=== PATIENT | female | born 1965 | race Caucasian/White ===

== ENCOUNTER 2023-07-03 20:37 | Emergency (ER) | payer OTHER, SELFPAY ==
[2023-07-03] VITALS (15 sets, daily range): BP systolic 132–150; BP diastolic 76–89; PULSE 68–81; RESP 9–21; TEMP 37.1; O2SAT 98–100; BMI 19.8
--- NOTE | 2023-07-03 20:54 | CT_ITS ---
The [address] [address] Patient Name: CECILIA PEÑA MRN: [id number] date: 1965 Sex: F Assigned Patient Location: ER Current Patient Location: ER Accession/Order Number: [id number] Exam Date: 07/03/2023 21:15 Report Date: 07/03/2023 21:48 At the request of: MIGUEL HEATH Procedure: CT head/brain wo con EXAM: CT head/brain wo con HISTORY: head trauma COMPARISON: None. TECHNIQUE: Axial CT scans through the head were obtained without IV contrast administration. Dose reduction techniques were achieved by using: automated exposure control and/or adjustment of mA and /or kV according to patient size and/or use of iterative reconstruction technique. FINDINGS: There is no acute intracranial hemorrhage or abnormal extra-axial fluid collection. No mass effect or midline shift is seen. There is no evidence of large acute territorial infarction. There is no hydrocephalus. To the limit of CT, the posterior fossa appears unremarkable. The calvaria and extra cranial soft tissues are unremarkable. The visualized orbits show no abnormal mass. Partial opacification of right sphenoid sinus is seen with fluid attenuation and foamy secretions. There are mucosal thickening in bilateral sphenoid sinus and ethmoid air cells. Mastoid air cells are clear. CT/CT head/brain wo con IMPRESSION: No acute intracranial process. Partial opacification of right sphenoid sinus with fluid attenuation and foamy secretions, suspicious for right sphenoid sinusitis. Electronically authenticated by: ABDELRAHMAN DUNNU Date: 07/03/2023 21:48
--- NOTE | 2023-07-03 20:54 | ECG_ITS ---
The [facility] Test Date: 2023-07-03 Pat Name: CECILIA PEÑA Department: Room: - Gender: Female Technical Services Specialist: : 1965 Requested By: [id number] Order Number: [id number] Reading MD: ROSAMARIA BOSS Measurements Intervals [place] Rate: 66 P: 55 [place]: 136 QRS: 83 QRSD: 86 T: 75 QT: 398 QTc: 412 Interpretive Statements 1100 Sinus rhythm 9110 normal ECG No previous ECG available for comparison Electronically Signed On 07-04-2023 7:21:43 EDT by ROSAMARIA BOSS
--- NOTE | 2023-07-03 20:57 | CT_ITS ---
[address] [address] Patient Name: CECILIA PEÑA MRN: [id number] date: 1965 Sex: F Assigned Patient Location: ER Current Patient Location: ER Accession/Order Number: [id number] Exam Date: 07/03/2023 21:15 Report Date: 07/03/2023 21:53 At the request of: MIGUEL HEATH Procedure: CT abdomen pelvis wo con EXAM: CT abdomen pelvis wo con HISTORY: abd pain and colitits COMPARISON: None. TECHNIQUE: Axial CT imaging was performed through the abdomen and pelvis without intravenous contrast. Multiplanar reformats were performed. Dose reduction techniques were achieved by using automated exposure control and/or adjustment of mA and/or kV according to patient size and/or use of iterative reconstruction technique. FINDINGS: Lung bases: Lung bases are clear. No pleural effusion. GI upper: Unremarkable. Liver: Normal size and contour. Gallbladder: No significant abnormality. No cholelithiasis. Biliary system: No intra or extrahepatic biliary ductal dilatation. Pancreas: Unremarkable. Spleen: Normal size. Adrenal glands: Normal adrenal glands. Kidneys/ureters: Normal contours. No hydronephrosis or visible mass. 2.3 cm right renal cyst. Maeve nephrolithiasis. Vessels: No aneurysm. Retroperitoneum: No lymphadenopathy. Small bowel: No wall thickening or dilatation. Colon: No wall thickening or dilatation. Appendix: No findings of appendicitis. Peritoneal cavity: No free fluid or pneumoperitoneum. Lower : Prior hysterectomy.. Bones:L5-S1 spondylosis with mild degenerative anterolisthesis of L5 upon S1. No acute bony abnormality. Soft tissues: No acute finding. Additional findings: None. CT/CT abdomen pelvis wo con IMPRESSION: Prior hysterectomy. L5-S1 spondylosis. No acute intra-abdominal or pelvic process is otherwise identified. Electronically authenticated by: Carmela URENA Date: 07/03/2023 21:53
[2023-07-03] MEDS: 0.9 % SODIUM CHLORIDE 1,000 ML 1000 ML IV (21:08)
[2023-07-03 21:23] LABS: Basophils Absolute Auto 0.1 10^3/uL (0.0-0.1); Basophils Percent Auto 0.6 % (0.2-2.0); Eosinophils Absolute Auto 0.1 10^3/uL (0.0-0.7); Eosinophils Percent Auto 0.5 % (0.9-7.0); Hematocrit 40.3 % (36.0-48.0); Hemoglobin 13.6 g/dL (12.0-16.0); Immature Granulocytes Abs Auto 0.02 10^3/uL (0.00-0.03); Immature Granulocytes Pct Auto 0.2 % (0.0-0.5); Lymphocytes Absolute Auto 1.9 10^3/uL (1.2-3.8); Lymphocytes Percent Auto 17.8 % (20.5-60.0); Mean Corpuscular HGB Conc 33.7 g/dL (29.9-35.2); Mean Corpuscular Hemoglobin 30.1 pg (26.7-34.0); Mean Corpuscular Volume 89.2 fL (81.0-99.0); Mean Platelet Volume 10.4 fL (9.5-13.5); Monocytes Absolute Auto 0.4 10^3/uL (0.3-0.8); Monocytes Percent Auto 3.4 % (1.7-12.0); Neutrophils Absolute Auto 8.1 10^3/uL (1.4-6.5); Neutrophils Percent Auto 77.5 % (43.0-75.0); Platelet Count 278 10^3/uL (150-450); Red Blood Count 4.52 10^6/uL (4.20-5.40); Red Cell Distribution Width 13.2 % (11.0-15.0); White Blood Count 10.5 10^3/uL (4.0-11.0)
[2023-07-03 21:41] LABS: INR 0.94
[2023-07-03 21:43] LABS: Alanine Aminotransferase 9 U/L (14-59); Albumin Globulin Ratio 1.4; Albumin Level 4.4 g/dL (3.4-5.0); Alkaline Phosphatase 80 U/L (46-116); Anion Gap 12.9; Aspartate Amino Transferase 19 U/L (15-37); BUN Creatinine Ratio 15.7; Bilirubin Total 0.7 mg/dL (0.2-1.0); Calcium 9.4 mg/dL (8.5-10.1); Carbon Dioxide 27.6 mmol/L (21.0-32.0); Chloride 102 mmol/L (98-107); Estimated GFR (African America >60 (>=60); Estimated GFR (Non-African Ame >60 (>=60); Globulin 3.1 g/dL; Glucose 114 mg/dL (74-106); Potassium 3.5 mmol/L (3.5-5.1); Sodium 139 mmol/L (136-145); Total Protein 7.5 g/dL (6.4-8.2); Troponin I High Sensitivity <4.0 pg/mL (4.0-51.3)
[2023-07-03] MEDS: ONDANSETRON PF 4 MG/2 ML VIAL IV (22:06)
[2023-07-03] MEDS: FAMOTIDINE/PF 20 MG/2 ML VIAL IV (22:07)
--- NOTE | 2023-07-03 22:29 | ED.NAVMDI1 ---
HPI - Nausea/Vomiting/Diarrhea General Chief complaint: Nausea/Vomiting/Diarrhea Stated complaint: VOMITING Time Seen by Provider: 07/03/23 20:53 Source: patient and family Mode of arrival: walk-in Limitations: no limitations History of Present Illness HPI Narrative: The patient is coming to the ER with 1 day history of lower abdominal pain associated with nausea and vomiting and diarrhea that started after that the patient mentioned that all started yesterday but at night almost 2 AM that she was having some lower abdominal pain when she was standing up when she had a lot of pain and then she remembered falling and passing out hitting the right side of her head. During the day the patient has some episode of nausea and vomiting she did not have an appetite to eat she also has a right-sided headache she also mentioned that she usually gets headache with migraine and she also have a history of chronic sinus problems The patient denies any fever chills coughing or any other complaints she did have a history of hysterectomy The patient also had a history of colitis and she is due to get her colonoscopy right now Related Data Previous Rx's Medication Instructions Recorded dicyclomine 10 mg capsule 10 mg PO QID PRN abdominal pain #7 07/03/23 caps ondansetron HCl 4 mg tablet 4 mg PO TID PRN nausea and 07/03/23 vomiting 1 day #3 tabs Allergies Allergy/AdvReac Type Severity Reaction Status Date / Time Penicillins Allergy Intermediate Verified 07/03/23 20:51 Review of Systems ROS Status of ROS 10 or more systems reviewed and unremarkable except as noted in history and below Exam Narrative Exam Narrative: Nurses notes and vital signs reviewed and patient is not hypoxic. General: Well-appearing and in no apparent distress. Skin: Warm, dry, no pallor noted. No rash. Head: Normocephalic, atraumatic. Neck: Supple, non-tender. Eye: Pupils are equal, round and EOMI. No scleral icterus. Ears, Nose, Mouth, and Throat: TM are clear, no nasal mucosal hypertrophy. Oral mucosa is moist, no posterior oropharynx erythema, uvula is mid-line Cardiovascular: Regular Rate and Rhythm without murmur, gallop or rub. Respiratory: No accessory muscle use or respiratory distress. Lungs are clear to auscultation, no wheezing, rales or rhonchi Chest Wall: no tenderness Back: No midline thoracic or lumbar vertebral tenderness. No CVA tenderness Musculoskeletal: normal ROM, no calf or popliteal tenderness, no lower extremity edema/swelling GI: Abdomen is soft, non-distended. Normal bowel sounds. No masses appreciated. No tenderness to palpation. No rebound, guarding, or rigidity noted. Neurological: A&O x4. No cranial nerve dysfunction observed. No truncal ataxia. Moves all extremities. Sensation intact. Psychiatric: Cooperative and interactive. Normal mood and affect. Constitutional Vital Signs, click to edit/add: Last Vital Signs Temp 98.8 F 07/03/23 20:46 Pulse 74 07/03/23 22:30 Resp 20 07/03/23 22:30 BP 142/89 H 07/03/23 22:30 Pulse Ox 100 07/03/23 22:30 Course Vital Signs Vital signs: Vital Signs Temperature 98.8 F 07/03/23 20:46 Pulse Rate 68 07/03/23 20:46 Respiratory Rate 20 07/03/23 20:46 Blood Pressure 138/84 07/03/23 20:46 Pulse Oximetry 98 07/03/23 20:46 Temperature 98.8 F 07/03/23 20:46 Pulse Rate 74 07/03/23 22:30 Respiratory Rate 20 07/03/23 22:30 Blood Pressure 142/89 H 07/03/23 22:30 Pulse Oximetry 100 07/03/23 22:30 MDM - Nausea/Vomiting/Diarrhea MDM Narrative Medical decision making narrative: The patient EKG in the ER was showing sinus rhythm with a heart rate of [address] elevation or depression The patient CBC and chemistry showed no acute significant pathology her CAT scan of the abdomen did not show any acute pathology as well regarding her colon CT of the head did not show any acute intracranial pathology The patient abdominal examination was benign initially and the rest of her evaluation did not show any acute significant pathology except for possible gastroenteritis The patient was given 1 L of fluids as well as Zofran and Pepcid in the ER and also discharged home with liquid diet for the next few days in addition to Zofran and Bentyl as supportive care for possible gastroenteritis The patient is to follow up with primary care physician in next 2-3 days or to return to the emergency department should any of the signs or symptoms worsen or new symptoms develop. The patient agrees with the following Diagnosis and Treatment plan and the patient will be discharged home. Lab Data Labs: Lab Results 07/03/23 Range/Units 21:00 WBC 10.5 (4.0-11.0) 10^3/uL RBC 4.52 (4.20-5.40) 10^6/uL Hgb 13.6 (12.0-16.0) g/dL Hct 40.3 (36.0-48.0) % MCV 89.2 (81.0-99.0) fL MCH 30.1 (26.7-34.0) pg MCHC 33.7 (29.9-35.2) g/dL RDW 13.2 (11.0-15.0) % Plt Count 278 (150-450) 10^3/uL MPV 10.4 (9.5-13.5) fL Neut % (Auto) 77.5 H (43.0-75.0) % Lymph % (Auto) 17.8 L (20.5-60.0) % [place] % (Auto) 3.4 (1.7-12.0) % Eos % (Auto) 0.5 L (0.9-7.0) % Baso % (Auto) 0.6 (0.2-2.0) % Neut # (Auto) 8.1 H (1.4-6.5) 10^3/uL Lymph # (Auto) 1.9 (1.2-3.8) 10^3/uL [place] # (Auto) 0.4 (0.3-0.8) 10^3/uL Eos # (Auto) 0.1 (0.0-0.7) 10^3/uL Baso # (Auto) 0.1 (0.0-0.1) 10^3/uL Abs Immat Gran (auto) 0.02 (0.00-0.03) 10^3/uL Imm/Tot Granulo (auto) 0.2 (0.0-0.5) % PT 10.0 (9.0-11.6) sec INR 0.94 Sodium 139 (136-145) mmol/L Potassium 3.5 (3.5-5.1) mmol/L Chloride 102 (98-107) mmol/L Carbon Dioxide 27.6 (21.0-32.0) mmol/L Anion Gap 12.9 BUN 11.0 (7.0-18.0) mg/dL Creatinine 0.70 (0.55-1.02) mg/dL Est GFR ( Amer) >60 (>=60) Est GFR (Non-Af Amer) >60 (>=60) BUN/Creatinine Ratio 15.7 Glucose 114 H (74-106) mg/dL Calcium 9.4 (8.5-10.1) mg/dL Total Bilirubin 0.7 (0.2-1.0) mg/dL AST 19 (15-37) U/L ALT 9 L (14-59) U/L Alkaline Phosphatase 80 (46-116) U/L Troponin I High Sens <4.0 L (4.0-51.3) pg/mL Total Protein 7.5 (6.4-8.2) g/dL Albumin 4.4 (3.4-5.0) g/dL Globulin 3.1 g/dL Albumin/Globulin Ratio 1.4 Lipase 100.0 (73.0-393.0) U/L Discharge Plan Discharge Chief Complaint: Nausea/Vomiting/Diarrhea Clinical Impression: Gastroenteritis, Headache due to trauma Patient Disposition: Home, Self-Care Time of Disposition Decision: 22:29 Prescriptions / Home Meds: New ondansetron HCl 4 mg tablet 4 mg PO TID PRN (Reason: nausea and vomiting) 1 Days Qty: 3 0RF dicyclomine 10 mg capsule 10 mg PO QID PRN (Reason: abdominal pain) Qty: 7 0RF Instructions: Concussion (ED), Gastroenteritis (ED) Stand Alone Forms: Portal Instructions Referrals: Physician,Non-Staff, MD [Primary Care Provider] - 1 week Discharge Date/Time: 07/03/23 22:52
== END 2023-07-03 22:52 | disposition home or self-care (01) ==
PROVIDERS: Emergency Provider Emergency Medicine
DX: K52.9 Noninfective gastroenteritis and colitis, unspecified (principal); R51.9 Headache, unspecified; Z91.81 History of falling; Z90.710 Acquired absence of both cervix and uterus
CPT/HCPCS: 36415; 70450; 74176; 80053; 80307; 83690; 84484; 85025; 85610; 93005; 96374; 96375; 99285

== ENCOUNTER 2024-02-29 18:40 | Emergency (ER) | payer OTHER, SELFPAY ==
[2024-02-29 18:43] VITALS: BP 139/77; PULSE 84; TEMP 37; O2SAT 100; BMI 19.8
--- NOTE | 2024-02-29 19:14 | XR_ITS ---
The [address] [address] Patient Name: CECILIA PEÑA MRN: [id number] date: 1965 Sex: F Assigned Patient Location: ER Current Patient Location: ER Accession/Order Number: [id number] Exam Date: 02/29/2024 19:35 Report Date: 02/29/2024 20:00 At the request of: MADISON MARKER Procedure: XR shoulder RT min 2V Exam: Radiographs: XR shoulder RT min 2V, XR chest 2V Reason for exam: Right shoulder pain Comparison: None XR/XR shoulder RT min 2V IMPRESSION: Hyperinflation both lungs. Pulmonary venous hypertension. Remainder the chest is unremarkable. Mild right glenohumeral and AC joint degenerative change. Right shoulder radiographs are otherwise unremarkable. Electronically authenticated by: LAKEISHA MERRITT Date: 02/29/2024 20:00
--- NOTE | 2024-02-29 19:14 | XR_ITS ---
The [address] [address] Patient Name: CECILIA PEÑA MRN: [id number] date: 1965 Sex: F Assigned Patient Location: ER Current Patient Location: ER Accession/Order Number: [id number] Exam Date: 02/29/2024 19:35 Report Date: 02/29/2024 20:00 At the request of: MADISON MARKER Procedure: XR chest 2V Exam: Radiographs: XR shoulder RT min 2V, XR chest 2V Reason for exam: Right shoulder pain Comparison: None XR/XR chest 2V IMPRESSION: Hyperinflation both lungs. Pulmonary venous hypertension. Remainder the chest is unremarkable. Mild right glenohumeral and AC joint degenerative change. Right shoulder radiographs are otherwise unremarkable. Electronically authenticated by: LAKEISHA MERRITT Date: 02/29/2024 20:00
--- NOTE | 2024-02-29 19:14 | ED.UPPEXIN1 ---
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 She denies any gaetano injury but thinks she may have twisted when putting pieces in the back of her car.. She states she has been having increasing pain which is worse at night. She occasionally takes ibuprofen. She has not family physician for this pain. She states the pain radiates down into her humerus and into her lower scapular area. She denies any chest pain except with movement of her right shoulder at that time she has some pain in her right anterior chest wall. She states that time her shoulder pops. She denies any weakness or numbness. She has no abdominal pain. She has no lower 70 pain or swelling. Related Data Previous Rx's ?Medication ?Instructions ?Recorded dicyclomine 10 mg capsule 10 mg PO QID PRN abdominal pain #7 07/03/23 caps ondansetron HCl 4 mg tablet 4 mg PO TID PRN nausea and 07/03/23 vomiting 1 day #3 tabs Allergies Allergy/AdvReac Type Severity Reaction Status Date / Time Penicillins Allergy Intermediate Verified 07/03/23 20:51 prednisone AdvReac Severe Verified 02/29/24 18:43 Opioid HPI Opioid Management Most Recent Pain and Opioid Data: Last Pain Scale 9 02/29/24 19:39 Last ED Pain Assessment 02/29/24 19:00 Last MAR Pain Assessment 02/29/24 19:39 Review of Systems ROS Status of ROS 10 or more systems reviewed and unremarkable except as noted in history and below Exam Narrative Exam Narrative: Nurses note and vital signs reviewed and patient is not hypoxic. General: Thin female resting comfortably on the cart, no respiratory distress, she moves easily about the cart Skin: Warm, dry, no pallor noted. There is no rash noted. Head: Normocephalic, atraumatic Eye: Normal conjunctiva, no drainage, EOMI. PERRL Ears, Nose, Mouth, and Throat: oral mucosa is moist. Nares patent Respiratory: Patient is in no distress, no accessory muscle use, lungs are clear to auscultation, no wheezing, rales or rhonchi, Mild tenderness to the right anterior chest wall Back: non-tender, no CVA tenderness bilaterally to percussion. GI: Normal bowel sounds, no tenderness to palpation, no masses appreciated. No rebound, guarding, or rigidity noted. Musculoskeletal: Tenderness without bony deformity or notable abnormality to the right anterior and posterior shoulder girdle and scapula, there is no midline vertebral cervical or thoracic tenderness. Range of motion is intact with discomfort appreciated with adduction of the right shoulder. Refrigeration Mechanic Helper strength is intact. Radial and brachial pulses are brisk and equal bilaterally. There is no lower extremity tenderness or swelling noted Neurological: A&O x4, normal speech Psychiatric: Cooperative Constitutional Vital Signs, click to edit/add: Last Vital Signs Temp 98.6 F 02/29/24 18:43 Pulse 84 02/29/24 18:43 Resp 16 02/29/24 18:43 BP 139/77 02/29/24 18:43 Pulse Ox 100 02/29/24 18:43 O2 Del Method Room Air 02/29/24 18:43 Course Vital Signs Vital signs: Vital Signs Temperature 98.6 F 02/29/24 18:43 Pulse Rate 84 02/29/24 18:43 Respiratory Rate 16 02/29/24 18:43 Blood Pressure 139/77 02/29/24 18:43 Pulse Oximetry 100 02/29/24 18:43 Oxygen Delivery Method Room Air 02/29/24 18:43 Temperature 98.6 F 02/29/24 18:43 Pulse Rate 84 02/29/24 18:43 Respiratory Rate 16 02/29/24 18:43 Blood Pressure 139/77 02/29/24 18:43 Pulse Oximetry 100 02/29/24 18:43 Oxygen Delivery Method Room Air 02/29/24 18:43 MDM - Extremity Injury (Upper) MDM Narrative Medical decision making narrative: This 58-year-old female presents for evaluation of at least 6 weeks of right anterior shoulder pain that has become increasingly more painful. She is concerned that she may have a rotator cuff injury. She denies any specific trauma. She has pain in the right anterior and posterior shoulder girdle. She has full range of motion although she does have some discomfort when she is adducting her right arm. 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 She has no weakness numbness or tingling. Her physical exam is benign with exception of some mild tenderness to the anterior posterior shoulder. She is a smoker. She denies any chest pain or shortness of breath. She is medicated emergency department with a [place] and Zofran. X-ray of the right shoulder and 2 view x-ray of the chest were reviewed by myself did not show any acute abnormalities. She was placed in a sling for comfort and will be discharged home with a referral to outpatient orthopedics, Medrol Dosepak and [place] to use as needed for ongoing pain. She has intermittently been using ibuprofen as well. Discharge Plan Discharge Stand Alone Forms: Portal Instructions Chief Complaint: Extremity Injury, Upper Clinical Impression: Right shoulder strain Patient Disposition: Home, Self-Care Time of Disposition Decision: 20:04 Condition: Good Prescriptions / Home Meds: No Action ondansetron HCl 4 mg tablet 4 mg PO TID PRN (Reason: nausea and vomiting) 1 Days Qty: 3 0RF dicyclomine 10 mg capsule 10 mg PO QID PRN (Reason: abdominal pain) Qty: 7 0RF Print Language: Ukrainian Instructions: Rotator Cuff Injury (ED), How to Use a Sling (ED), Shoulder Sprain (ED), Shoulder Pain (ED), Rotator Cuff Injury Exercises (DC) Referrals: Physician,Non-Staff, [Primary Care Provider] - 1 week Bunny De La Vega MD [Physician] - 1 week
[2024-02-29] MEDS: HYDROCODONE/ACET 5-325 MG TABLET 1 TAB PO (19:39)
[2024-02-29] MEDS: ONDANSETRON 4 MG RAPDIS TABLET SL (19:40)
== END 2024-02-29 20:27 | disposition home or self-care (01) ==
PROVIDERS: Emergency Provider Emergency Medicine
DX: S46.911A Strain of unspecified muscle, fascia and tendon at shoulder and upper arm level, right arm, initial encounter (principal); X50.9XXA Other and unspecified overexertion or strenuous movements or postures, initial encounter; F17.210 Nicotine dependence, cigarettes, uncomplicated
CPT/HCPCS: 71046; 73030; 99283

== ENCOUNTER 2024-11-18 17:36 | Emergency (ER) | payer OTHER, SELFPAY ==
[2024-11-18 18:04] VITALS: BP 126/82; PULSE 88; TEMP 36.4; O2SAT 95; BMI 19.8
[2024-11-18 18:59] LABS: Influenza Virus A Antigen Negative; Influenza Virus B Antigen Negative; Internal Control Within Normal Limits; SARS-CoV-2 Ag NEGATIVE (NEGATIVE)
[2024-11-18 19:52] VITALS: BP 136/82; PULSE 78; TEMP 36.9; O2SAT 100
--- NOTE | 2024-11-18 19:56 | ED_ITS ---
HPI HPI - General Adult General Chief complaint: Nausea/Vomiting/Diarrhea Stated complaint: ears sinus pressure Time Seen by Provider: 11/18/24 19:50 Source: patient Mode of arrival: walk-in History of Present Illness HPI narrative: 59-year-old female presents to the emergency department for headache. This started this morning at the top of her head and then it spread throughout the rest of her head and it has been continuous. No trauma fever or stiff neck and this headache is very similar to headaches that she has had previously. She has pressure in her ears. No fever or cough. Related Data Previous Rx's ?Medication ?Instructions ?Recorded dicyclomine 10 mg capsule 10 mg PO QID PRN abdominal pain #7 07/03/23 caps ondansetron HCl 4 mg tablet 4 mg PO TID PRN nausea and 07/03/23 vomiting 1 day #3 tabs omejmtvttf-augpyomfylcmg-priupnwz 1 cap PO Q6H PRN pain 5 days #20 11/18/24 50 mg-300 mg-40 mg capsule caps (Fioricet) Allergies Allergy/AdvReac Type Severity Reaction Status Date / Time Penicillins Allergy Intermediate Verified 07/03/23 20:51 prednisone AdvReac Severe Verified 02/29/24 18:43 Opioid HPI Opioid Management Most Recent Opioid Data: Last Pain Scale 5 11/18/24 21:03 11/18/24 Last ED Pain Assessment 11/18/24 21:03 Review of Systems ROS Narrative A ten point review of systems is negative except as noted above. PFSH PFSH Social History Little interest or pleasure in doing things: not at all Feeling down, depressed, or hopeless: not at all Exam Narrative Exam Narrative: Nurses note and vital signs reviewed and patient is not hypoxic. General: The patient appears in no apparent distress. The lights are turned down in the room. Skin: Warm, dry, no pallor noted. There is no rash noted. Head: Normocephalic, atraumatic; neck supple, no nuchal rigidity Eye: Normal conjunctiva, no drainage, EOMI. PERRL Ears, Nose, Mouth, and Throat: oral mucosa is moist. Nares patent. Cardiovascular: Regular Rate and Rhythm Respiratory: Patient is in no distress, no accessory muscle use, lungs are clear to auscultation, no wheezing, rales or rhonchi Back: non-tender GI: Soft and nontender Musculoskeletal: The patient has no evidence of calf tenderness, no pitting edema, symmetrical pulses noted bilaterally Neurological: A&O, normal speech; upper and lower extremity strength intact and symmetric Psychiatric: Cooperative Constitutional Vital Signs, click to edit/add: Last Vital Signs Temp 98.4 F 11/18/24 19:52 Pulse 78 11/18/24 19:52 Resp 18 11/18/24 19:52 BP 136/82 11/18/24 19:52 Pulse Ox 100 11/18/24 19:52 O2 Del Method Room Air 11/18/24 18:04 Course Vital Signs Vital signs: Vital Signs Temperature 97.6 F 11/18/24 18:04 Pulse Rate 88 11/18/24 18:04 Respiratory Rate 18 11/18/24 18:04 Blood Pressure 126/82 11/18/24 18:04 Pulse Oximetry 95 11/18/24 18:04 Oxygen Delivery Method Room Air 11/18/24 18:04 Temperature 98.4 F 11/18/24 19:52 Pulse Rate 78 11/18/24 19:52 Respiratory Rate 18 11/18/24 19:52 Blood Pressure 136/82 11/18/24 19:52 Pulse Oximetry 100 11/18/24 19:52 Oxygen Delivery Method Room Air 11/18/24 18:04 Medical Decision Making MDM Narrative Medical decision making narrative: The patient has a typical for her headache. She was given IV Toradol, Benadryl, Solu-Medrol, and Zofran and seems to be feeling improved. She is able to be discharged home on Fioricet. Treatment diagnosis and follow-up were discussed with the patient. Differential Diagnosis Differential Diagnosis: Nonspecific headache, migraine headache Lab Data Lab results reviewed: Yes I reviewed the patient's lab results Labs: Lab Results 11/18/24 Range/Units 18:12 Influenza Type A Ag Negative Influenza Type B Ag Negative SARS-CoV-2 Ag (CV2AG) Negative (NEGATIVE) Discharge Plan Discharge Chief Complaint: Nausea/Vomiting/Diarrhea Clinical Impression: Headache Patient Disposition: Home, Self-Care Time of Disposition Decision: 21:14 Condition: Good Mode of Transportation: Private Vehicle Prescriptions / Home Meds: New yoarxihrkn-nwhhqaysppeuz-yxsn [Fioricet] 50-300-40 mg capsule 1 cap PO Q6H PRN (Reason: pain) 5 Days Qty: 20 0RF No Action ondansetron HCl 4 mg tablet 4 mg PO TID PRN (Reason: nausea and vomiting) 1 Days Qty: 3 0RF dicyclomine 10 mg capsule 10 mg PO QID PRN (Reason: abdominal pain) Qty: 7 0RF Print Language: Croatian Instructions: Acute Headache (ED) Referrals: Physician,Non-Staff, MD [Primary Care Provider] - 1 week
--- NOTE | 2024-11-18 19:56 | PC.NURSE ---
this patient complains of a migraine, nausea, and dizziness onset 1 day ago. this patient this migraine is the same as the ones in the past. this patient denies any recent falls, injury or trauma to cause this migraine
[2024-11-18] MEDS: ONDANSETRON PF 4 MG/2 ML VIAL IV (20:18)
[2024-11-18] MEDS: DIPHENHYDRAMINE HCL 50 MG/ML VIAL 25 MG IV ×2 (20:18→22:00)
[2024-11-18] MEDS: METHYLPREDNISOLONE SOD SUCC PF 125 MG/2 ML VIAL IVP (20:18)
[2024-11-18] MEDS: KETOROLAC TROMETHAMINE 30 MG/ML VIAL IVP ×2 (20:19→21:55)
--- NOTE | 2024-11-18 21:03 | PC.NURSE ---
this patient voices her headache is at 5./10 down from 10/10 and nausea is better now and this patient said I was able to sleep a little
[2024-11-18 21:25] VITALS: BP 106/73; PULSE 74; TEMP 36.9; O2SAT 98
[2024-11-18 21:52] VITALS: BP 123/81; PULSE 76; TEMP 36.6; O2SAT 98
--- NOTE | 2024-11-18 22:04 | PC.NURSE ---
i gave this patient verbal and paper discharge orders along with 1 e-script, and this patient voices yes to understanding these. at time of discharge this patient voics no concerns and shows no signs of distress
== END 2024-11-18 22:05 | disposition home or self-care (01) ==
PROVIDERS: Emergency Medicine Emergency Medical Services; Emergency Provider Emergency Medicine
DX: R51.9 Headache, unspecified (principal)
CPT/HCPCS: 87804; 87811; 96374; 96375; 96376; 99285; J1200; J1885; J2405; J2919

== ENCOUNTER 2025-01-02 13:31 | Outpatient (OUT) | payer OTHER, SELFPAY ==
--- NOTE | 2025-01-02 13:35 | CT_ITS ---
The [address] [address] Patient Name: CECILIA PEÑA MRN: [id number] date: 1965 Sex: F Assigned Patient Location: CT Current Patient Location: Accession/Order Number: [id number] Exam Date: 01/02/2025 13:48 Report Date: 01/03/2025 04:10 At the request of: GILBERTO WALLER Procedure: CT sinus wo con EXAM: CT sinus wo con INDICATION: 59 years old; Female. Symptom/Location/Duration: Chronic sinusitis. TECHNIQUE: CT examination of the paranasal sinuses. Axial, coronal and sagittal reformats were reviewed. Ionizing radiation dose reduced via iterative reconstruction/FBP blend and body size kV/mA adjustment. COMPARISON: Images from a head CT dated 07/03/2023. FINDINGS: POSTOPERATIVE CHANGES: None. ANTERIOR COMPARTMENT: Frontal sinuses: Thickening with cyst or polyp formation in the right frontal sinus. No fluid levels. Left frontal sinus thickening. No fluid level. Anterior ethmoid air cells: Clear bilaterally. Frontoethmoidal recesses: Patent bilaterally. Maxillary sinus: Minimal thickening in the maxillary sinuses. Ostiomeatal units: Patent bilaterally. POSTERIOR COMPARTMENT: Sphenoid sinuses: Thickening bilaterally. Posterior ethmoid air cells: Clear bilaterally. Sphenoethmoidal recesses: Patent bilaterally. NASAL CAVITY: Nasal turbinates: Susan bullosa bilaterally. Nasal septum: Midline without spur. Olfactory recess: Clear. DEVELOPMENTAL ANOMALIES: Fovea ethmoidalis: Symmetric. Vertical petrous carotid arteries: Covered by bone. Optic nerves: Project across the superior aspect of the sphenoid sinus, worse on the right than the left. Remaining covered by bone. MISCELLANEOUS: Globes, orbits, and visualized brain: No orbital masses are appreciated. A portion of the brain is included in this study. No mass effect is seen. Ventricular system is nondilated. Vascular calcifications are present. This study cannot exclude all brain pathology. Visualized cervical spine: C1-C2 is included. There is narrowing of the predental space with spurring. The study does not clear the cervical spine. OTHER: None. CT/CT sinus wo con IMPRESSION: 1. Sinus thickening. No fluid levels. The ostiomeatal units and sphenoethmoidal recesses are patent. Electronically authenticated by: JERMAINE ATKINSON Date: 01/03/2025 04:10
== END 2025-01-02 13:32 | disposition home or self-care (01) ==
LOC: CT 13:32
PROVIDERS: Visit Provider Nurse Practitioner
DX: J32.8 Other chronic sinusitis (principal)
CPT/HCPCS: 70486